=== PATIENT | female | born 2000 | race Caucasian/White ===

== ENCOUNTER → 2022-04-05 14:48 | Outpatient (CLI) | payer OTHER, MEDICAID, SELFPAY ==
[2022-04-05 18:42] LABS: COVID-19 CEPHEID 4-PLEX PCR Negative (Negative); Influenza A - CEPHEID Flu A POSITIVE (NEGATIVE); Influenza B - CEPHEID Flu B NEGATIVE (NEGATIVE); Respiratory Syncytial Virus Negative (Negative)
== END ==
PROVIDERS: PCP Physician Assistant; Visit Provider Physician Assistant
DX: R05.1 Acute cough (principal); J02.9 Acute pharyngitis, unspecified
CPT/HCPCS: 0241U; 87070

== ENCOUNTER → 2022-04-05 15:53 | Outpatient (CLI) | payer OTHER, MEDICAID, SELFPAY | PROVIDERS: PCP Physician Assistant; Referring Provider Physician Assistant; Visit Provider Physician Assistant | DX: J06.9 Acute upper respiratory infection, unspecified (principal) ==

== ENCOUNTER → 2022-04-05 16:08 | Outpatient (CLI) | payer OTHER, MEDICAID, SELFPAY ==
--- NOTE | 2022-04-05 16:12 | DI.RAD.S_ITS ---
PROCEDURE: XR CHEST 2V INDICATIONS: Wheezing and cough TECHNIQUE: 2 views of the chest were acquired. COMPARISON: None. FINDINGS: Surgical changes and devices: None. Lungs and pleura: Lungs are clear. No pleural effusions or pneumothorax. Mediastinum: Mild pectus deformity. Mediastinal contours are normal. Heart size is normal. Bones and chest wall: No suspicious bony abnormalities. Soft tissues appear unremarkable. IMPRESSION: No acute cardiopulmonary disease. Dictated by: Tu Fan RR Interpreted: Arsalan Lewis MD on 04/05/2022 at 16:23 Transcribed by: SHAQ on 04/05/2022 at 16:23 Approved by: Arsalan Lewis M.D. on 04/05/2022 at 16:44
== END ==
PROVIDERS: PCP Physician Assistant; Referring Provider Physician Assistant; Visit Provider Physician Assistant
DX: J06.9 Acute upper respiratory infection, unspecified (principal); R05.1 Acute cough
CPT/HCPCS: 0241U; 71046; 87070; 87880

== ENCOUNTER 2022-04-08 09:05 | Emergency (ER) | payer OTHER, MEDICAID, SELFPAY ==
[2022-04-08 09:27] VITALS: BP 121/71; PULSE 105; RESP 16; TEMP 36.9; O2SAT 98; BMI 19.8
--- NOTE | 2022-04-08 09:54 | ED_ITS ---
HPI - General Adult General Chief complaint: Upper Respiratory Symptoms Stated complaint: Fever x9days, vomiting,back pain,cough Time Seen by Provider: 04/08/22 09:35 Source: patient Mode of arrival: Ambulatory Limitations: no limitations History of Present Illness HPI narrative: 21-year-old female who was seen in the walk-in clinic couple days ago. Had an x-ray, throat culture and respiratory panel performed. Was sent home before these were resulted. Was given a prescription for antibiotics and steroids. She has picked up these medications but has not started any of them. She is had 9 days of headache, cough, body aches, fevers and generally not feeling very well. She stated that she had a bad experience at the walk-in clinic and did not trust that the medications she was prescribed for appropriate so she came to the emergency department today for further evaluation. She also had a episode of vomiting today Related Data Home Medications Medication Instructions Recorded Confirmed sertraline 50 mg tablet (Zoloft) 50 mg PO DAILY 04/05/22 04/05/22 Previous Rx's Medication Instructions Recorded norethindrone 0.5 mg-ethinyl See Rx Instructions .Route 08/13/19 estradiol 35 mcg tablet ([place] (28)) .COMPLEX #84 tabs penicillin V potassium 250 mg 500 mg PO BID #20 tabs 04/05/22 tablet prednisone 5 mg tablet 5 mg PO DIRECTED #21 tabs 04/05/22 ondansetron 4 mg disintegrating 4 mg PO Q6H PRN nausea and 04/08/22 tablet vomiting #14 tabs Allergies Allergy/AdvReac Type Severity Reaction Status Date / Time No Known Drug Allergies Allergy Unverified 04/05/22 14:49 Review of Systems Constitutional Constitutional: Reports body ache(s), Reports chills and Reports fever(s) ENT Ears, Nose, Mouth, and Throat: Reports system reviewed and no additional complaints, except as documented Respiratory Respiratory: Reports system reviewed and no additional complaints, except as documented Gastrointestinal Gastrointestinal: Reports system reviewed and no additional complaints, except as documented Integumentary/Breasts Skin/Breast: Reports system reviewed and no additional complaints, except as documented Patient History Medical History Tonsillitis Social History Smoking Status: Never smoker second hand exposure: No alcohol intake: current (Mixed drinks or wine 2 or 3 times a week) substance use type: does not use Smoking Status: Never smoker Substance Use Type: does not use Exam Initial Vital Signs Initial Vital Signs: Vital Signs Temperature 98.4 F 04/08/22 09:27 Pulse Rate 105 H 04/08/22 09:27 Respiratory Rate 16 04/08/22 09:27 Blood Pressure 121/71 04/08/22 09:27 Pulse Oximetry 98 04/08/22 09:27 Oxygen Delivery Method 04/08/22 09:27 [facility] Head: normal to inspection and normocephalic Resp Effort & Inspection: normal respiratory effort Auscultation: clear to auscultation bilaterally Cardio Rate: regular rate Skin General: no rashes or lesions noted Neuro General: patient alert, patient awake and moves all extremities Extrem General: normal to inspection and capillary refill normal Course Vital Signs Vital signs: Vital Signs - 8 hr 04/08/22 09:27 Temperature 98.4 F Pulse Rate 105 H Respiratory Rate 16 Blood Pressure 121/71 Pulse Oximetry 98 Oxygen Delivery Method Room Air Medical Decision Making [facility] Narrative Medical decision making narrative: Review the patient's medical record shows she was positive for influenza A. Her chest x-ray was unremarkable in her throat culture was mixed lindsey. I informed the patient that she should not take the antibiotics nor the steroids as her symptoms are most likely related to the flu. Her lungs were clear today. No indication for repeat x-rays. She has had vomiting this morning. Was sent home with a prescription for Zofran so that she can have this as needed. Patient is nontoxic. She will continue with Tylenol and ibuprofen and also other supportive treatment. Discharge Plan Departure Patient Disposition: Home Clinical Impression: Influenza A Instructions: DI for Influenza -- Adult Activity Restrictions/Additional Instructions: I recommend that you do not take the antibiotics nor the steroids like we discussed. Be sure that you are increasing your fluid intake. You can take Tylenol/ibuprofen. These can be purchased [id number]. Use the nausea medication as needed. Be sure to increase your fluid intake. Contact your primary doctor for follow-up. Prescriptions: New ondansetron 4 mg tablet,disintegrating 4 mg PO Q6H PRN (Reason: nausea and vomiting) Qty: 14 0RF No Action sertraline [Zoloft] 50 mg tablet 50 mg PO DAILY penicillin V potassium 250 mg tablet 500 mg PO BID Qty: 20 0RF prednisone 5 mg tablet 5 mg PO DIRECTED Qty: 21 0RF Rx Instructions: see taper instructions 6 tablets on day 1 and 5 tablets on day 2 and 4 tablets on day 3 and 3 tablets on day for and 2 tablets on day 5 and 1 tab on day 6 [place] (28) 0.5-35 mg-mcg tablet See Rx Instructions .ROUTE .COMPLEX Qty: 84 3RF Dose Instruction: take 1 tablet by mouth once daily Rx Instructions: take 1 tablet by mouth once daily
[2022-04-08 10:09] VITALS: BP 114/67; PULSE 107; RESP 18; O2SAT 96
== END 2022-04-08 10:15 | disposition home or self-care (01) ==
PROVIDERS: Emergency Provider Emergency Medicine
DX: J10.1 Influenza due to other identified influenza virus with other respiratory manifestations (principal)
CPT/HCPCS: 99281